=== PATIENT | female | born 2000 | race Hispanic/Latino ===

== ENCOUNTER 2019-04-06 01:01 | Inpatient (IN) | payer OTHER ==
[2019-04-06] MEDS ORDERED: Ringers Lactate 1,000 ML IV PRN (15:41)
--- OUTSIDE RECORDS SUMMARY | 2019-04-06 15:47 | XMS REPORT ---
:2000 [facility] Address [address] [place] [address] Dr. Cardozo [address] [place] [id number] Care Team Providers Name Role Phone Unavailable Unavailable Unavailable Problems This patient has no known problems. Allergies, Adverse Reactions, Alerts This patient has no known allergies or adverse reactions. Medications This patient has no known medications.
[2019-04-06] MEDS ORDERED: miSOPROStoL 100 MCG TAB VAG SCH (16:00)
[2019-04-06] MEDS ORDERED: Ringers Lactate 1,000 ML IV SCH (16:00)
[2019-04-06 17:30] LABS: Absolute Lymphocytes (CBC) 1.2 K/uL (0.7-4.9); Basophils % 0.3 % (0-1.3); Hematocrit 34.3 % (36.0-45.0); Lymphocytes % 20.8 % (15.3-44.8); RBC Red Blood Cell Count 3.78 M/uL (3.86-4.86)
[2019-04-06 17:31] LABS: Urine Appearance CLOUDY; Urine Bilirubin NEGATIVE (NEG); Urine Blood NEGATIVE (NEG); Urine Color YELLOW; Urine Glucose NEGATIVE (NEG); Urine Protein NEGATIVE (NEG); Urine Specific Gravity <=1.005 (1.005-1.030); Urine Urobilinogen 0.2 mg/dL (0.2-1.0); Urine pH 6.5 (5.0-7.0)
[2019-04-06 17:57] VITALS: BMI 28.7
[2019-04-06 18:04] LABS: Urine Bacteria 20-50 /HPF (<20); Urine Culture Reflex Order REFLEXED; Urine RBC <5 /HPF (NONE SEEN)
--- NOTE | 2019-04-06 21:24 | PREOPHP ---
Date of Admission: 04/06/2019 18-year-old primigravida, at 39 weeks 3 days for Cytotec induction. Full pros and cons discussed lake or to admission and again today. Cervix is posterior, she is 1 maybe 1-1/2. Baby is at -2 station. Cytotec 50 mcg inserted. She knows that during the night if she has rupture of membranes, she is to tell the nurse and she will be checked that will put 2 more Cytotec 50 mcg tablets then at 6 hour in tervals unless rupture of membranes occurs or if she goes into a good firm labor on her own. Rh posi tive, immune to Rubella. Negative beta strep screen. Anticipate delivery sometime tomorrow. LEXIS/PEDRO Voice ID: [id number]
[2019-04-06] MEDS ORDERED: ZOLPIDEM TARTRATE 5 MG TABLET PO PRN (22:23)
[2019-04-06] MEDS ORDERED: ZOLPIDEM TARTRATE 10 MG TABLET PO PRN (22:41)
[2019-04-07] MEDS ORDERED: ZOLPIDEM TARTRATE 5 MG TABLET PO PRN (02:57)
[2019-04-07 05:43] LABS: RPR (Rapid Plasma Reagin) NON-REACT (NON-REACT)
[2019-04-07] MEDS ORDERED: METHYLERGONOVINE 0.2MG/ML AMP IM ONE (08:49)
[2019-04-07] MEDS ORDERED: CARBOPROST TROME 250 MCG/ML IM ONE (08:50)
[2019-04-07] MEDS ORDERED: PROMETHAZINE INJ 25 MG/ML AMP ONE (08:50)
[2019-04-07] MEDS ORDERED: Ringers Lactate 1,000 ML IV ONE ×3 (09:09→12:29)
[2019-04-07] MEDS ORDERED: LIDOCAINE 1% MPF 30 ML VIAL ONE (09:33)
[2019-04-07] MEDS ORDERED: LIDOCAINE 1% 20 ML MDV ONE (09:33)
[2019-04-07] MEDS ORDERED: BUTORPHANOL 1 MG/ML INJ ONE (10:02)
[2019-04-07] MEDS ORDERED: OXYTOCIN/LR 20 UNIT/1,000 ML BAG IV ONE (10:35)
[2019-04-07] MEDS ORDERED: FENTANYL/BUPIVACAINE/NS/PF 200 MCG/100 ML BAG EP PRN (11:00)
[2019-04-07] MEDS ORDERED: FENTANYL CITR 100 MCG/2 ML IV ONE (11:00)
[2019-04-07] MEDS ORDERED: BUPIVACAINE 0.25% PF 30 ML VIAL IV ONE (11:02)
[2019-04-07] MEDS ORDERED: BISACODYL 10 MG RECTAL SUPP RECT PRN (15:38)
[2019-04-07] MEDS ORDERED: Oxycodone HCl/Acetaminophen 1 TAB TAB PO PRN ×2 (15:38)
[2019-04-07] MEDS ORDERED: DOCUSATE NA/SENNA CONC 1 TAB PO PRN (15:38)
[2019-04-07] MEDS ORDERED: DIPHENHYDRAMINE 25 MG TAB/CAP PO PRN (15:38)
[2019-04-07] MEDS ORDERED: CEFAZOLIN/SWI 1gm 1 GM/10 ML SYR ONE (15:58)
[2019-04-07] MEDS ORDERED: OXYTOCIN/LR 20 UNIT/1,000 ML BAG IV SCH (16:00)
[2019-04-07] MEDS ORDERED: SILVER NITRATE 1 APPL TOP ONE (16:33)
[2019-04-07] MEDS: ACETAMINOPHEN 500 MG TAB PO PRN (19:46)
--- NOTE | 2019-04-08 01:41 | OP ---
Surgeon: Nikolay Nj MD History: A 18-year-old primigravida, at 39 weeks 4 days today, had Cytotec inserted x3, 50 mcg each time 6 hours apart, went into an active labor pattern this morning at 1.5 cm, rupture of membranes, c lear fluid. Patient at 5 cm requested and received epidural anesthesia. Second stage of about 45 mi nutes to 50 minutes vacuum-assisted delivery with second-degree episiotomy performed. Infant Apgars 9 and 9. Schultze delivery of the placenta. Estimated blood loss 400 to 450 mL. Episiotomy repaire d +2 to 3 very superficial laceration sutured with 2-0 chromic interrupted [id number] stitches. Ancef 1 g ordered for prophylaxis as significant number of sutures used. Tolerated all procedures w ell. She is Rh positive, immune to Rubella. Beta strep screen negative. Final Diagnoses: Intrauterine gestation, 39 weeks 3 days. Cytotec. Vaginal delivery with vacuum as sistance at 39 weeks 4 days. Epidural anesthesia. LEXIS/PEDRO Voice ID: [id number] Report ID: [id number]
[2019-04-08] MEDS: ACETAMINOPHEN 500 MG TAB PO PRN ×2 (05:10→13:25)
[2019-04-08] MEDS: IBUPROFEN 200 MG TAB PO PRN ×2 (08:13→16:40)
[2019-04-08 16:59] VITALS: BP 107/61; TEMP 97.2
--- NOTE | 2019-04-10 13:51 | PN ---
This is a 18-year-old primigravida, now at 39 weeks and 4 days. Had Cytotec inserted 50 mcg x3, last dose at approximately 4 a.m. ayden regularly. The cervix is now 1.5 cm, less posterior, 50% e ffaced, vertex, well applied at -1 station. Rupture of membranes, clear fluid. Patient's pain level is 3 at this point. Anticipate it will of course increase. Full labor talk given. Anticipate more rapid progress as the day proceeds. Patient knows though we probably would not deliver until this a fternoon. She has not decided on her labor plan. She may attempt natural but knows that she can ask for analgesics or epidural if she chooses. She is beta strep negative. Doing well at this point. LEXIS/PEDRO Voice ID: [id number] Report ID: [id number]
--- NOTE | 2019-04-10 13:55 | DS ---
Date of Discharge: 04/08/2019 Summary: 18-year-old primigravida, 39 weeks 3 days, has Cytotec inserted x3, 50 mcg each time, [place] amezquita at 39 weeks 4 days, 7 pounds, 10 ounce female, Apgars 9 and 9. [address] age with vacuum-assisted delivery. Second-degree episiotomy performed and 2 first-degree lacerations , all sutured with 2-0 chromic. Schultze delivery of the placenta, with estimated blood loss of 450 mL. 1 g of Ancef given for prophylaxis. Rh positive, immune to Rubella. Negative beta strep screen . The patient has had her Tdap immunization and flu shots. No post epidural problems. Is ambulatin g, voiding, no problems or complaints voiced today. She is to see me in 6 weeks, to report any tempe rature elevation of 100 degrees or greater, severe pain, heavy bleeding, or any other type of abnorma lities. Requests no analgesics on dismissal, was taking Motrin. Final Diagnoses: Intrauterine gestation, 39 weeks 3 days, Cytotec for cervical ripening. Labor george ction. Vaginal delivery. Epidural anesthesia. Vacuum-assisted delivery. LEXIS/PEDRO Voice ID: [id number] Report ID: [id number]
--- NOTE | 2019-04-10 14:13 | PN ---
At 5 cm, requested and received epidural anesthesia. She is now 7 cm, 90% to 100% effaced, baby marli gh is posterior. She will do pelvic rocks to try to get the baby to rotate. We should be now in the active phase of labor. LEXIS/PEDRO Voice ID: [id number] Report ID: [id number]
[2019-04-12 04:14] LABS: HBsAG Nonreactive (Nonreactive)
== END 2019-04-08 17:30 | disposition home or self-care (01) | DRG 833 ==
LOC: 2ND-WC 15:44
PROVIDERS: ADMIT Specialist; ATTEND Specialist
PROC: 0W8NXZZ Division of Female Perineum, External Approach (ICD-10-PCS; principal; 2019-04-07)
PROC: 10D07Z6 Extraction of Products of Conception, Vacuum, Via Natural or Artificial Opening (ICD-10-PCS; 2019-04-07)
PROC: 0HQ9XZZ Repair Perineum Skin, External Approach (ICD-10-PCS; 2019-04-07)
PROC: 3E0P7VZ Introduction of Hormone into Female Reproductive, Via Natural or Artificial Opening (ICD-10-PCS; 2019-04-07)
DX: O63.1 Prolonged second stage (of labor) (principal); O70.0 First degree perineal laceration during delivery; O66.5 Attempted application of vacuum extractor and forceps; Z3A.39 39 weeks gestation of pregnancy
CPT/HCPCS: 36415; 81001; 85025; 86592; 86901; 87086; 87088; 87340; J0595; J0690; J2210; J2550; J2590; J3010; J7120

== ENCOUNTER 2021-07-02 11:57 | Inpatient (IN) | payer OTHER ==
--- OUTSIDE RECORDS SUMMARY | 2021-07-02 15:01 | XMS REPORT | Continuity of Care Document ---
:2000 Author Organization [facility] Address [address] [place] [address] Dr. Cardozo [address] [place] [id number] Care Team Providers Name Role Phone Unavailable Unavailable Unavailable Problems This patient has no known problems. Allergies, Adverse Reactions, Alerts This patient has no known allergies or adverse reactions. Medications This patient has no known medications. Procedures This patient has no known procedures. Results This patient has no known results.
[2021-07-02] MEDS ORDERED: Ringers Lactate 1,000 ML IV PRN (15:29)
[2021-07-02] MEDS ORDERED: miSOPROStoL 100 MCG TAB VAG ONE (15:41)
[2021-07-02 15:43] LABS: Absolute Lymphocytes (CBC) 1.3 K/uL (0.7-4.9); Hematocrit 27.7 % (36.0-45.0); Lymphocytes % 17.9 % (15.3-44.8); MPV 8.5 fL (7.6-11.3); RBC Red Blood Cell Count 3.61 M/uL (3.86-4.86)
[2021-07-02 15:45] LABS: Urine Appearance Clear (Clear); Urine Bilirubin Negative (Negative); Urine Blood Negative (Negative); Urine Color Yellow (Yellow); Urine Glucose Negative (Negative); Urine Protein Negative (Negative); Urine Specific Gravity 1.015 (1.005-1.030); Urine Urobilinogen 0.2 mg/dL (0.2-1.0); Urine pH 6.5 (5.0-7.0)
[2021-07-02 15:46] LABS: Urine Microscopic Reflex ORDER UMIC
[2021-07-02 15:54] LABS: Urine Bacteria <20 /HPF (<20); Urine Mucus 1+ /HPF (NONE SEEN); Urine RBC <5 /HPF (NONE SEEN)
[2021-07-02 15:57] VITALS: BMI 28.3
[2021-07-02] MEDS ORDERED: OXYTOCIN/LR 20 UNIT/1,000 ML BAG IV SCH (16:00)
[2021-07-02] MEDS ORDERED: Ringers Lactate 1,000 ML IV SCH (16:00)
[2021-07-02] MEDS ORDERED: miSOPROStoL 100 MCG TAB VAG PRN (16:21)
[2021-07-02] MEDS ORDERED: ZOLPIDEM TARTRATE 5 MG TABLET PO SCH (21:00)
[2021-07-02] MEDS: miSOPROStoL 100 MCG TAB VAG PRN (23:54)
[2021-07-03] MEDS: miSOPROStoL 100 MCG TAB VAG PRN (05:55)
--- NOTE | 2021-07-03 09:16 | PREOPHP ---
Date of Admission: 07/02/2021 History Of Present Illness: A 20-year-old 2, para 1, 39 weeks 1 day, followed antepartum wit hout complications. Admitted for labor induction with Cytotec. The patient had Cytotec with the [facility] and it worked quite well. Pros and cons of this thoroughly discussed prior to admission . Family History: Father and grandparents with hypertension. Father and grandparents with diabetes. Maternal grandmother, cancer site undetermined. Past Surgical History: No previous surgeries. Allergies: NO ALLERGIES. Medications: No medicines prior to admission other than vitamins and iron. Social History: Does not smoke. Physical Examination: HEENT: Clear. Pupils equal, round, reactive to light and accommodation. Conjunctivae well perfused . No oral, lingual, or buccal lesions. Chest/Lungs: Clear. Heart: Without murmurs, thrills, heaves, or rubs. Breasts: Without masses on previous visits. Abdomen: Term. Baby is extremely high, she is 1.5 posterior, 40% effaced. Cytotec 50 mcg inserted. We will insert 50 mcg every 6 hours if needed for a total of 3 doses. We will stop Cytotec if rupture of membranes occur and patient gets into an active labor. Full labor talk given. Anticipate delivery sometime tomorrow. The patient is Rh positive, immune to rubella, negative strep , COVID pending. LEXIS/PEDRO Voice ID: [id number]
[2021-07-03] MEDS ORDERED: 0.2% ROPIVACAINE (200 MG/100 ML) BAG EP ONE (10:20)
[2021-07-03] MEDS ORDERED: FENTANYL CITR 100 MCG/2 ML IV ONE (10:22)
[2021-07-03] MEDS ORDERED: ROPIVACAINE HCL 0.2% 20ML AMP IV ONE (10:22)
[2021-07-03] MEDS ORDERED: METHYLERGONOVINE 0.2MG/ML AMP IM ONE (11:45)
[2021-07-03] MEDS ORDERED: LIDOCAINE 1% MPF 30 ML VIAL ONE (11:45)
[2021-07-03] MEDS ORDERED: CARBOPROST TROME 250 MCG/ML IM ONE (11:45)
[2021-07-03] MEDS ORDERED: DOCUSATE NA/SENNA CONC 1 TAB PO PRN (12:37)
[2021-07-03] MEDS ORDERED: ACETAMINOPHEN 500 MG TAB PO PRN (12:37)
[2021-07-03] MEDS ORDERED: BISACODYL 10 MG RECTAL SUPP RC PRN (12:37)
[2021-07-03] MEDS ORDERED: Oxycodone HCl/Acetaminophen 1 TAB TAB PO PRN ×2 (12:37)
[2021-07-03] MEDS ORDERED: DIPHENHYDRAMINE 25 MG TAB/CAP PO PRN (12:37)
[2021-07-03] MEDS ORDERED: OXYTOCIN/LR 20 UNIT/1,000 ML BAG IV SCH (13:00)
[2021-07-03] MEDS: IBUPROFEN 600 MG TAB PO PRN (16:46)
--- NOTE | 2021-07-03 16:50 | PN ---
Swapna Enamorado got her epidural 3. She is now complete, about a +1 station. She still has no urgen cy to push. We will start increasing the Pitocin. She was only on 2 milliunits, will go up 2 every 30 minutes. Once she starts feeling the urge to push, I do not think it will take long. LEXIS/PEDRO Voice ID: [id number] Report ID: [id number]
[2021-07-03] MEDS ORDERED: Ringers Lactate 2,000 ML IV ONE (18:32)
[2021-07-03 23:49] LABS: RPR (Rapid Plasma Reagin) NON-REACT (NON-REACT)
--- NOTE | 2021-07-03 23:56 | OP ---
Surgeon: Nikolay Nj MD 20-year-old, 2, para 1, 39 weeks and 1 day yesterday. Cytotec inserted 50 mcg every 6 hours x3. This morning, the patient is 1.5 cm, 50% effaced, vertex, -1 station, well applied. Rupture of membranes, clear fluid. At 3 cm, requested and received epidural anesthesia. The patient went rapid ly to complete. Second stage of about 30 minutes or less of active pushing. Spontaneous vaginal del nidia of an estimated 7-pound plus female. Apgars 9 and 9. Second-degree laceration sustained, wher e previous laceration with first had occurred, repaired with 2-0 chromic. Sharrone deliver y of the placenta was inspected and noted to be intact and normal. 250 cc estimated blood loss at th is point. The patient is Rh positive. Immune to Rubella. Negative strep. Negative COVID. Tolerat ed all procedures well. Final Diagnosis: Term intrauterine . Cytotec for labor induction. Vaginal delivery. Epid ural anesthesia. LEXIS/MODL Voice ID: [id number] Report ID: [id number]
[2021-07-04] MEDS: IBUPROFEN 600 MG TAB PO PRN (11:04)
[2021-07-04 14:31] VITALS: BP 105/60; TEMP 96.8
[2021-07-08 04:09] LABS: HBsAG Nonreactive (Nonreactive)
--- NOTE | 2021-07-08 11:36 | DS ---
Date of Discharge: 07/04/2021 Swapna Enamorado, 2, para 1, 39 weeks 2 days. Time of delivery at 39 weeks 1 day, had Cytotec inserted 50 mcg x3 doses over every 6 hours. The morning of delivery, the patient was 3 cm rupture of membranes, clear fluid. She received epidural anesthesia, second stage of 20 minutes or less. Sp ontaneous vaginal delivery of a 6-pound 15-ounce female, Apgars 9 and 9. Epidural anesthesia. A sec ond-degree laceration of her previous laceration site from first delivery, repaired with 2-0 chromic. Schultze delivery of the placenta was inspected and noted to be intact and normal, 250 cc or less b lood loss. Rh positive, immune to rubella, negative strep, negative COVID. afebrile, amb ulating, voiding. Lochia is normal. The patient had admission hematocrit of approximately 28. When admitted, she was not taking her vitamins or iron as instructed. She knows that if she oliverio es the iron tablets, her blood count will rise and she will feel much better. No post epidural probl ems. Requires no analgesics on dismissal. Tdap again offered, which has been offered several times during the . Final Diagnosis: Term intrauterine 39 weeks 1 day. Cytotec for labor induction. Vaginal delivery at 39 weeks and 2 days. Epidural anesthesia. Tdap offered. LEXIS/PEDRO Voice ID: [id number] Report ID: [id number]
--- NOTE | 2021-07-08 11:45 | PN ---
The patient has had 3 doses of Cytotec, last one about 5:30 this morning. She is ayden but not really uncomfortable. She is now 1.5 cm, 50% effaced, still posterior, but the baby is well applied , now at about a -1 station, rupture membranes, clear fluid. FHTs normal, reactive. Anticipate more active labor at this point. We will start Pitocin depending upon what her contractions do and how f orceful in the next hour or 2. Full labor talk given. Patient may request epidural anesthesia. She will try to wait until she is in a more active labor if at all possible. She is going to try to go natural if possible. LEXIS/PEDRO Voice ID: [id number] Report ID: [id number]
== END 2021-07-04 14:00 | disposition home or self-care (01) | DRG 807 ==
LOC: 2ND-WC 14:59
PROVIDERS: ADMIT Specialist; ATTEND Specialist
PROC: 10E0XZZ Delivery of Products of Conception, External Approach (ICD-10-PCS; principal; 2021-07-03)
PROC: 0KQM0ZZ Repair Perineum Muscle, Open Approach (ICD-10-PCS; 2021-07-03)
PROC: 3E0DXGC Introduction of Other Therapeutic Substance into Mouth and Pharynx, External Approach (ICD-10-PCS; 2021-07-03)
PROC: 10907ZC Drainage of Amniotic Fluid, Therapeutic from Products of Conception, Via Natural or Artificial Opening (ICD-10-PCS; 2021-07-03)
DX: O70.1 Second degree perineal laceration during delivery (principal); Z37.0 Single live birth; Z3A.39 39 weeks gestation of pregnancy; Z20.822 Contact with and (suspected) exposure to COVID-19
CPT/HCPCS: 36415; 81003; 81015; 85025; 86592; 86593; 86901; 87086; 87088; 87340; J2210; J2590; J2795; J3010; J7120; U0003